=== PATIENT | male | born 1955 | race Caucasian/White ===

== ENCOUNTER 2019-08-25 10:30 | Emergency (ER) | payer BC, OTHER ==
[~2019-08-25] VITALS: Ht 167.6 cm; Wt 94.0 kg
[2019-08-25] MEDS ORDERED: ASPI81TA86 PO (10:59)
[2019-08-25] MEDS ORDERED: METF500T13 PO (10:59)
[2019-08-25] MEDS ORDERED: TAMS1CAP17 PO (10:59)
[2019-08-25] MEDS ORDERED: SIMV20TA22 PO (10:59)
[2019-08-25] MEDS ORDERED: LISI10TA4 PO (10:59)
[2019-08-25] MEDS ORDERED: JANU100T PO (10:59)
[2019-08-25 11:01] LABS: BASO # 0.1 10^3/uL (0.0-0.2); BASO % 0.7 % (0.0-1.0); EOS # 0.1 10^3/uL (0.0-0.5); EOS % 1.6 % (0.0-3.0); HEMATOCRIT 41.6 % (42.0-52.0); HEMOGLOBIN 14.1 g/dl (13.5-17.5); LYMPH # 1.9 10^3/uL (1.5-5.0); LYMPH % 23.6 % (24.0-44.0); MEAN CORPUSCULAR HEMOGLOBIN 29.5 pg (27.0-33.0); MEAN CORPUSCULAR HGB CONC 33.9 g/dl (32.0-36.5); MONO # 0.7 10^3/uL (0.0-0.8); MONO % 8.4 % (0.0-5.0); NEUTROPHILS # 5.3 10^3/uL (1.5-8.5); NEUTROPHILS % 65.1 % (36.0-66.0); PLATELET COUNT, AUTOMATED 226 10^3/uL (150-450); RED BLOOD COUNT 4.78 10^6/uL (4.30-6.10); WHITE BLOOD COUNT 8.1 10^3/uL (4.0-10.0)
[2019-08-25 11:23] LABS: ALBUMIN 3.9 GM/DL (3.2-5.2); ALT/SGPT 45 U/L (12-78); BILIRUBIN,TOTAL 0.6 MG/DL (0.2-1.0); BLOOD UREA NITROGEN 16 MG/DL (7-18); CARBON DIOXIDE LEVEL 25 MEQ/L (21-32); CHLORIDE LEVEL 109 MEQ/L (98-107); CREATININE FOR GFR 0.94 MG/DL (0.70-1.30); GLOMERULAR FILTRATION RATE > 60.0 (>49); GLUCOSE, FASTING 136 MG/DL (70-100); POTASSIUM SERUM 4.1 MEQ/L (3.5-5.1); SODIUM LEVEL 142 MEQ/L (136-145); TOTAL PROTEIN 7.4 GM/DL (6.4-8.2)
[2019-08-25 11:53] LABS: CPK CREATINE PHOSPHOKINASE 210 U/L (39-308); MB/CK RELATIVE INDEX 0.95 (< OR =4); TROPONIN I 0.14 NG/ML (< 0.10)
--- NOTE | 2019-08-25 12:01 | REP ---
Oral chest x-ray: Single view. History: Near-syncope. Findings: Monitoring electrodes are seen. Heart size is borderline. Pulmonary vasculature is not increased. No infiltrate is seen. The pleural angles are sharp. No significant bony abnormality. Impression: Borderline heart size. Otherwise no acute disease. Electronically Signed by Peter Brar MD 08/25/2019 11:53 A
--- NOTE | 2019-08-25 12:19 | REP ---
CT BRAIN WITHOUT CONTRAST: HISTORY: Near syncope. No comparison study. 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 The maxilla is edentulous. Bone window settings demonstrate fairly heavy vascular calcification in the distal internal carotid arteries bilaterally. The visualized paranasal sinuses are clear. The bony calvarium is intact. No intraorbital abnormality is seen. On soft-tissue window settings, the lateral, third, and fourth ventricles are normal in size and position. Contreras-white differentiation pattern is normal above and below the tentorium. There is no evidence of intracranial hemorrhage. No mass, infarction, extra-axial fluid collection, or midline shift is seen. IMPRESSION: Vascular calcification. Otherwise negative noncontrast head CT. No acute intracranial abnormality. Electronically Signed by Peter Brar MD 08/25/2019 12:57 P
[2019-08-25 13:43] LABS: CK-MB VALUE MASS 1.8 NG/ML (<3.6); MB/CK RELATIVE INDEX 0.99 (< OR =4); TROPONIN I 0.14 NG/ML (< 0.10)
[2019-08-25 15:49] LABS: CK-MB VALUE MASS 1.7 NG/ML (<3.6); MB/CK RELATIVE INDEX 0.99 (< OR =4); TROPONIN I 0.14 NG/ML (< 0.10)
[2019-08-25 16:01] VITALS: BP 167/79
--- NOTE | 2019-08-26 15:42 | ECGEPIP ---
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
--- NOTE | 2019-08-26 15:47 | ECGEPIP ---
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
--- NOTE | 2019-08-26 15:50 | ECGEPIP ---
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
== END 2019-08-25 16:15 | disposition home or self-care (01) ==
LOC: M ED 10:30
DX: T67.1XXA Heat syncope, initial encounter (principal); R00.1 Bradycardia, unspecified; E11.9 Type 2 diabetes mellitus without complications; I10 Essential (primary) hypertension; Z79.82 Long term (current) use of aspirin; Z79.84 Long term (current) use of oral hypoglycemic drugs; Z79.899 Other long term (current) drug therapy

== ENCOUNTER → 2023-01-03 | Outpatient (CLI) | payer BC ==
[~2023-01-03] MED LIST: ASPI81TA86 PO; JANU100T PO; LISI10TA22 PO; METF500T13 PO; SIMV20TA22 PO; TAMS1CAP17 PO
== END ==
LOC: M SLEEP 20:00
PROVIDERS: ATTEND Nurse Practitioner Family
DX: G47.61 Periodic limb movement disorder (principal); R40.0 Somnolence